=== PATIENT | female | born 1995 | race Caucasian/White ===

== ENCOUNTER 2025-06-23 10:19 | Emergency (ER) | payer OTHER ==
[~2025-06-23] VITALS: Ht 167.6 cm; Wt 64.0 kg
[2025-06-23] MEDS ORDERED: HYDPAM25 PO (14:22)
== END 2025-06-23 14:28 | disposition home or self-care (01) ==
LOC: ER 10:19
DX: F41.9 Anxiety disorder, unspecified (principal)
CPT/HCPCS: 81025; 99283; A9270